=== PATIENT | male | born 1985 | race Caucasian/White ===

== ENCOUNTER 2018-10-02 17:57 | Emergency (ER) | payer OTHER ==
[2018-10-02 18:03] VITALS: BMI 34.9
[2018-10-02 18:08] VITALS: BP 130/84; PULSE 90; RESP 18; TEMP 98.9; O2SAT 100
[2018-10-02 18:57] LABS: INFLUENZA A B NEGATIVE FOR FLU A/B (NEGATIVE)
--- NOTE | 2018-10-02 19:43 | ED PDOC ---
Arrival/HPI - General Chief Complaint: ENT Problem Time Seen by Provider: 10/02/18 17:58 Historian: Patient - History of Present Illness Narrative History of Present Illness (Text): 33 y/o male with no significant PMH presents to the ED c/o sore throat x 1 day. Associated subjective fevers, nausea, diarrhea, and generalized myalgias. Has not taken any medications for his symptoms. No recent travel or sick contacts. Denies abdominal pain, neck pain/stiffness, cough, headache, dizziness, vision changes, vomiting, hematochezia, or any other associated symptoms. Past Medical History - Provider Review Nursing Documentation Reviewed: Yes - Psychiatric Hx Substance Use: No Family/Social History - Physician Review Nursing Documentation Reviewed: Yes Family/Social History: No Known Family HX Smoking Status: Never Smoked Hx Alcohol Use: No Hx Substance Use: No Allergies/Home Meds Allergies/Adverse Reactions: Allergies No Known Allergies Allergy (Verified 10/02/18 18:02) Review of Systems - Review of Systems Constitutional: Fatigue, Fevers Eyes: Normal. absent: Vision Changes ENT: Sore Throat, Sinus Congestion Respiratory: Normal. absent: SOB, Cough Cardiovascular: Normal. absent: Chest Pain, Palpitations Gastrointestinal: Diarrhea, Appetite Changes. absent: Abdominal Pain, Nausea, Vomiting Genitourinary Male: Normal. absent: Dysuria, Frequency Musculoskeletal: Normal. absent: Back Pain, Neck Pain Skin: Normal. absent: Rash Neurological: Normal. absent: Headache, Dizziness Physical Exam Vital Signs Reviewed: Yes Vital Signs Temp Pulse Resp BP Pulse Ox 10/02/18 18:03 98.9 F 90 18 130/84 100 Temperature: Afebrile Blood Pressure: Normal Pulse: Regular Respiratory Rate: Normal Appearance: Positive for: Well-Appearing, Non-Toxic, Comfortable Pain Distress: None Mental Status: Positive for: Alert and Oriented X 3 - Systems Exam Head: Present: Atraumatic, Normocephalic Pupils: Present: PERRL Extroacular Muscles: Present: EOMI Conjunctiva: Present: Normal Ears: Present: Normal, NORMAL TM, Normal Canal Mouth: Present: Moist Mucous Membranes Pharnyx: Present: ERYTHEMA (bilateral tonsils), TONSILS ENLARGED (bilaterally). No: EXUDATE, Peritonsilar Swelling, Uvular Deviation, Muffled/Hoarse Voice, Strider, Other (no tripoding) Nose (External): Present: Atraumatic Nose (Internal): Present: Normal Inspection Neck: Present: Normal Range of Motion. No: Meningeal Signs Respiratory/Chest: Present: Clear to Auscultation, Good Air Exchange. No: Respiratory Distress, Accessory Muscle Use Cardiovascular: Present: Regular Rate and Rhythm, Normal S1, S2, Peripheal Pulses Present Abdomen: No: Tenderness Back: No: CVA Tenderness Upper Extremity: Present: Normal Inspection, Normal ROM, NORMAL PULSES, Neurovascularly Intact, Capillary Refill < 2s. No: Cyanosis, Edema, Temperature Abnormalties Lower Extremity: Present: Normal ROM Neurological: Present: GCS=15, CN II-XII Intact, Speech Normal, Motor Func Grossly Intact, Normal Sensory Function, Gait Normal Skin: Present: Warm, Dry, Normal Color. No: Rashes Psychiatric: Present: Alert, Oriented x 3, Normal Insight, Normal Concentration, Normal Affect, Normal Mood Medical Decision Making ED Course and Treatment: 10/02/18 19:46 Initial Plan: * Rapid Strep * Rapid Flu Rapid strep negative Rapid flu negative Patient most likely with viral syndrome. Recommended supportive care and PMD followup. Diagnostic testing results and plan of care discussed with patient. Strict instructions given regarding prescription use, importance of followup, and signs/symptoms to return to ER including chest pain, SOB, cough, or any other new/worsening symptoms. Pt verbalized understanding of discussion. Patient is A&Ox3, ambulating with steady gait, with vital signs stable for discharge. - Lab Interpretations Lab Results: Lab Results 10/02/18 18:38: Influenza Typ A,B (EIA) Negative for flu a/b, Grp A Beta Strep Ag Negative I have reviewed the lab results: Yes Disposition/Present on Arrival - Present on Arrival Any Indicators Present on Arrival: No History of DVT/PE: No History of Uncontrolled Diabetes: No Urinary Catheter: No History of Decub. Ulcer: No History Surgical Site Infection Following: None - Disposition Have Diagnosis and Disposition been Completed?: Yes Diagnosis: Viral syndrome Disposition: HOME/ ROUTINE Disposition Time: 19:15 Patient Plan: Discharge Condition: GOOD Discharge Instructions (ExitCare): Viral Syndrome (DC), Viral Pharyngitis (DC) Additional Instructions: Increase fluids Rest, no strenuous activity Cepacol sore throat as needed Tylenol/ibuprofen for fever Followup with primary doctor within 2 days Return to ER with any new/worsening symptoms Prescriptions: Benzocaine/Menthol [Cepacol Sore Throat] 1 alvaro MM Q4 #30 alvaro Referrals: [facility] [place] - Follow up with primary Tania Jorge MD [Medical Doctor] - Follow up with primary Forms: [email or web address] ([place]), WORK NOTE
== END 2018-10-02 19:24 | disposition home or self-care (01) ==
LOC: ED 17:57
DX: B34.9 Viral infection, unspecified (principal)